=== PATIENT | male | born 1940 | race Caucasian/White ===

== ENCOUNTER → 2016-09-19 | Outpatient (CLI) | payer MEDICARE, MEDICAID ==
[~2016-09-19] MED LIST: ACETAMINOPHEN W1 TA6 PO; AMOXICILLIN 8751 TAB PO; ASPIRIN 32325 MG/TAB PO; ASPIRIN 81M81 MG/TA2 PO; ASPIRIN E.C. 8181 MG PO; ATIVAN 0.50.5 MG/TAB PO; ATIVAN 1MG T1 MG/TAB PO; CELEXA10 MG; CELEXA40 MG PO; CENTRUM SILVER1 TA1 PO; CENTRUM SILVER1 TA2 PO; DAZIDOX10 MG PO; DEPAKOTE 250MG250 MG PO; DEPAKOTE ER 25250 MG PO; DULCOLAX S10 MG/SUPP RC; DULCOLAX TAB5 MG PO; FEROSUL325 MG PO; FLOMAX 0.40.4 MG/CAP PO; FOLIC ACID 40400 MCG PO; GENTAMICIN EYE D5 ML OS; GENTLE LAXATIVE10 MG RC; GLUCOPHAGE1000 MG PO; GLUCOPHAGE500 MG/TAB PO; HALDOL 1MG T1 MG/TAB PO; HYDROXYZINE PO; IMODIUM 2MG CAPS2 MG PO; LANTUS SOLOS100 U/ML SQ; LISINOPRIL; LISINOPRIL10 MG PO; LOPRESSOR 225 MG/TAB PO; LORTAB 2.5/5001 TAB PO; LORTAB 5/500 501 TAB PO; MIRALAX PA17 GM/Dose PO; MYRBETR50MG PO; NORCO 325 MG-51 TAB PO; NOVLOG SQ; PREVACID 15MG15 M1; PREVACID30 MG PO; PRILOSEC 20MG20 MG PO; PRILOTC PO; PRINIVIL20 MG PO; PROTONIX 40MG T40 MG PO; SEROQUEL 1100 MG/TAB PO; SEROQUEL50 MG PO; STOOL SOFTENER100 M2 PO; TYLENOL 325MG325 MG PO; TYLENOL EXTRA500 M1 PO; UNABLE; VITAMIN B11000 MCG/M IM; VITAMIN C500 MG PO; XANAX .25M0.25 MG/TA PO; XANAX0.25 MG PO; ZESTRIL 20MG TA20 MG PO; ZOLOFT 100MG100 MG PO; [UNRECOGNIZED DRUG - OTHER]; [UNRECOGNIZED DRUG - REMARK]; [UNRECOGNIZED DRUG - REMARK]
[2016-09-19 09:24] LABS: ALBUMIN 3.8 gm/dL (3.5-5.0); BILIRUBIN,TOTAL 0.7 mg/dL (0.0-1.0); CALCIUM 9.8 mg/dL (8.4-10.2); CREATININE, serum 0.68 mg/dL (0.66-1.25); POTASSIUM 4.2 mmol/L (3.4-5.0); TOTAL PROTEIN 7.6 gm/dL (6.4-8.2)
== END ==
LOC: ZCOL.LAB 07:02
PROVIDERS: Family Medicine
DX: K85.02 Idiopathic acute pancreatitis with infected necrosis (principal); F32.3 Major depressive disorder, single episode, severe with psychotic features

== ENCOUNTER → 2016-09-28 | Outpatient (CLI) | payer MEDICARE, MEDICAID | LOC: BHSO 13:50 | DX: F06.32 Mood disorder due to known physiological condition with major depressive-like episode (principal) ==

== ENCOUNTER → 2016-10-05 | Outpatient (CLI) | payer MEDICARE, MEDICAID | LOC: ZCOL.LAB 15:00 | DX: T42.6X1A Poisoning by other antiepileptic and sedative-hypnotic drugs, accidental (unintentional), initial encounter (principal) ==

== ENCOUNTER → 2016-10-27 | Outpatient (CLI) | payer MEDICARE, MEDICAID | LOC: ZCOL.LAB 11:10 | DX: E11.9 Type 2 diabetes mellitus without complications (principal); Z02.89 Encounter for other administrative examinations ==

== ENCOUNTER → 2016-12-28 | Outpatient (CLI) | payer MEDICARE, MEDICAID | LOC: BHSO 13:17 | DX: F06.32 Mood disorder due to known physiological condition with major depressive-like episode (principal) ==

== ENCOUNTER → 2017-03-29 | Outpatient (CLI) | payer MEDICARE, MEDICAID | LOC: BHSO 14:30 | DX: F06.32 Mood disorder due to known physiological condition with major depressive-like episode (principal) ==

== ENCOUNTER → 2017-06-08 | Outpatient (CLI) | payer MEDICARE, MEDICAID ==
[2017-06-08 01:51] LABS: BASO # 0.1 (0.0-0.2); BASO % 1.1 % (0.0-2.0); EOS # 0.4 (0.0-0.7); EOS % 7.8 % (0-4.0); GRAN # 2.2 (1.4-6.5); GRAN % 46.8 % (42.2-75.2); LYMPH # 1.4 (1.2-3.4); MEAN CELL VOLUME 102 fl (80.0-100.0); MEAN CORPUSCULAR HGB CONC 33 g/dl (33.0-37.0); MEAN PLATELET VOLUME 10.1 fl (7.4-10.4); MONO # 0.6 (0.1-0.6); MONO % 13.2 % (1.7-9.3); PLATELET COUNT 114 K/mm3 (130-400); RED BLOOD COUNT 3.19 M/mm3 (4.20-5.60); WHITE BLOOD COUNT 4.6 K/mm3 (4.8-10.8)
[2017-06-08 01:52] LABS: HEMATOCRIT 32.6 % (42.0-52.0); HEMOGLOBIN 10.8 g/dl (13.5-18.0); MEAN CORPUSCULAR HEMOGLOBIN 34 pg (27.0-31.0)
== END ==
LOC: ZCOL.LAB 01:30
PROVIDERS: Family Medicine
DX: I50.9 Heart failure, unspecified (principal); E11.9 Type 2 diabetes mellitus without complications

== ENCOUNTER → 2017-08-09 | Outpatient (CLI) | payer MEDICARE, MEDICAID ==
[2017-08-09 17:05] LABS: COLLECTION METHOD CLEAN CATCH
[2017-08-09 17:22] LABS: MUCOUS Present /lpf; PH 5 (5-8); SQUAMOUS EPITHELIAL 0-2 /hpf; URINE APPEARANCE Hazy; URINE BACTERIA None Seen /hpf; URINE BILIRUBIN Negative (NEGATIVE); URINE BLOOD Negative (NEGATIVE); URINE CALCIUM OXALATE CRYSTAL Present /hpf; URINE COLOR Amber; URINE GLUCOSE Negative (NEGATIVE); URINE KETONE Negative (NEGATIVE); URINE LEUKOCYTE ESTERASE Negative (NEGATIVE); URINE NITRATE Negative (NEGATIVE); URINE PROTEIN(semi-quant) 1+ (NEGATIVE); URINE UROBILINOGEN >=4.0 mg/dL (NEGATIVE)
== END ==
LOC: ZCOL.LAB 17:02
PROVIDERS: Family Medicine
DX: N39.0 Urinary tract infection, site not specified (principal)

== ENCOUNTER → 2017-12-05 | Outpatient (CLI) | payer MEDICARE, MEDICAID ==
[~2017-12-05] MED LIST changes: +ARICEPT10 MG PO; +CEPHALEXIN500 M1 PO; +CLARITIN 1010 MG/TAB PO; +COLESTID 1GM1 G PO; +DEPAKOTE500 MG PO; +DOXYCYCLINE 10100 MG PO; +MOBIC 7.5MG7.5 MG PO; +MULTI VITAMINS1 TAB PO; +PRINIVIL2.5 MG PO
== END ==
LOC: BHSO 10:18
DX: F06.32 Mood disorder due to known physiological condition with major depressive-like episode (principal)
CPT/HCPCS: G0463

== ENCOUNTER 2017-12-10 18:34 | Emergency (ER) | payer MEDICARE, MEDICAID ==
[2004-09-21 11:13] VITALS: BP 125/91
[~2017-12-10 18:34] MED LIST changes: -ARICEPT10 MG PO; -CEPHALEXIN500 M1 PO; -CLARITIN 1010 MG/TAB PO; -COLESTID 1GM1 G PO; -DEPAKOTE500 MG PO; -DOXYCYCLINE 10100 MG PO; -MOBIC 7.5MG7.5 MG PO; -MULTI VITAMINS1 TAB PO; -PRINIVIL2.5 MG PO
[2017-12-10 18:37] VITALS: TEMP 99.2
[2017-12-10 18:55] LABS: BASO % 0.8 % (0.0-2.0); EOS # 0.2 (0.0-0.7); GRAN # 1.7 (1.4-6.5); GRAN % 43.6 % (42.2-75.2); HEMOGLOBIN 10.1 g/dl (13.5-18.0); LYMPH # 1.3 (1.2-3.4); LYMPH % 33.1 % (20.0-51.0); MEAN CELL VOLUME 102 fl (80.0-100.0); MEAN CORPUSCULAR HEMOGLOBIN 35 pg (27.0-31.0); MEAN CORPUSCULAR HGB CONC 34 g/dl (33.0-37.0); MEAN PLATELET VOLUME 9.7 fl (7.4-10.4); MONO # 0.7 (0.1-0.6); MONO % 17.2 % (1.7-9.3); PLATELET COUNT 103 K/mm3 (130-400)
[2017-12-10 18:57] LABS: HEMATOCRIT 29.6 % (42.0-52.0)
[2017-12-10 19:01] LABS: INR 1.2 (0.8-3.0); PROTHROMBIN TIME 13.1 SECONDS (9.7-12.8)
[2017-12-10 19:10] LABS: ALANINE AMINOTRANSFERASE 27 U/L (21-72); ALBUMIN 3.6 gm/dL (3.5-5.0); ALKALINE PHOSPHATASE 99 U/L (50-136); ANION GAP 12 mmol/L (7-16); AST,SGOT 39 U/L (15-37); BILIRUBIN,TOTAL 1.2 mg/dL (0.0-1.0); BLOOD UREA NITROGEN 26 mg/dL (9-20); C-REACTIVE PROTEIN 1.1 mg/dL (0.0-0.9); CALCIUM 10.1 mg/dL (8.4-10.2); CARBON DIOXIDE 23 mmol/L (22-30); CHLORIDE 105 mmol/L (98-107); CREATINE KINASE 76 U/L (55-170); CREATININE, serum 1.01 mg/dL (0.66-1.25); GLUCOSE 108 mg/dL (74-106); LIPASE 131 U/L (23-300); SODIUM 140 mmol/L (137-145); TOTAL PROTEIN 8.5 gm/dL (6.4-8.2)
[2017-12-10 19:23] LABS: TROPONIN-I < 0.012 ng/mL (0.000-0.034)
[2017-12-10] MEDS ORDERED: PRINIVIL2.5 MG PO (19:35)
[2017-12-10] MEDS ORDERED: DEPAKOTE500 MG PO (19:36)
[2017-12-10] MEDS ORDERED: CLARITIN 1010 MG/TAB PO (19:37)
[2017-12-10] MEDS ORDERED: ARICEPT10 MG PO (19:38)
[2017-12-10] MEDS ORDERED: MULTI VITAMINS1 TAB PO (19:38)
[2017-12-10] MEDS ORDERED: MOBIC 7.5MG7.5 MG PO ×2 (19:39)
[2017-12-10] MEDS ORDERED: SEROQUEL50 MG PO (19:41)
[2017-12-10] MEDS ORDERED: COLESTID 1GM1 G PO (19:42)
[2017-12-10] MEDS ORDERED: CEPHALEXIN500 M1 PO (19:42)
[2017-12-10] MEDS ORDERED: TYLENOL 325MG325 MG PO (19:43)
[2017-12-10 19:56] LABS: COLLECTION METHOD CLEAN CATCH
[2017-12-10 20:09] LABS: MUCOUS Present /lpf; PH 5 (5-8); SQUAMOUS EPITHELIAL None Seen /hpf; URINE APPEARANCE Clear; URINE BACTERIA Many /hpf; URINE BILIRUBIN Negative (NEGATIVE); URINE BLOOD Negative (NEGATIVE); URINE COLOR Yellow; URINE GLUCOSE Negative (NEGATIVE); URINE KETONE Negative (NEGATIVE); URINE LEUKOCYTE ESTERASE Negative (NEGATIVE); URINE NITRATE Negative (NEGATIVE); URINE PROTEIN(semi-quant) Negative (NEGATIVE); URINE RBC 0-2 /hpf; URINE UROBILINOGEN Negative (NEGATIVE)
[2017-12-10] MEDS ORDERED: DOXYCYCLINE 10100 MG PO (21:16)
[2017-12-10 22:30] VITALS: BP 107/55; PULSE 67
== END 2017-12-10 22:25 | disposition home or self-care (01) ==
LOC: COL.ER 18:34
PROVIDERS: Emergency Medicine
DX: L98.499 Non-pressure chronic ulcer of skin of other sites with unspecified severity (principal); E11.9 Type 2 diabetes mellitus without complications; F03.90 Unspecified dementia, unspecified severity, without behavioral disturbance, psychotic disturbance, mood disturbance, and anxiety; I10 Essential (primary) hypertension; G40.909 Epilepsy, unspecified, not intractable, without status epilepticus; Z87.891 Personal history of nicotine dependence; Z90.89 Acquired absence of other organs; Z86.73 Personal history of transient ischemic attack (TIA), and cerebral infarction without residual deficits; Z79.4 Long term (current) use of insulin
CPT/HCPCS: J2060; J7030